=== PATIENT | female | born 1990 | race Two or more races ===

== ENCOUNTER 2025-04-26 15:40 | Emergency (ER) | payer BC ==
[~2025-04-26] VITALS: Ht 175.3 cm; Wt 82.6 kg
[2025-04-26] MEDS ORDERED: diphenhydrAMINE 50 MG/1 ML VIAL ONE (16:07)
[2025-04-26] MEDS ORDERED: METOCLOPRAMIDE HCL 10 MG/2 ML VIAL ONE (16:07)
[2025-04-26] MEDS ORDERED: FAMOTIDINE. 20 MG/2 ML VIAL IV ONE (16:08)
[2025-04-26] MEDS: IV NORMAL SALINE 1000 ML BAG IV ONE (16:20)
[2025-04-26] MEDS: FAMOTIDINE. 20 MG/2 ML VIAL IV ONE (16:20)
[2025-04-26] MEDS: METOCLOPRAMIDE HCL 10 MG/2 ML VIAL IV ONE (16:20)
[2025-04-26] MEDS: diphenhydrAMINE 50 MG/1 ML VIAL IV ONE (16:20)
[2025-04-26 16:25] LABS: PLATELET COUNT (AUTO) 350 K/uL (179-408); RED BLOOD CELL COUNT(AUTO) 4.42 MIL/uL (3.63-4.92); RED CELL DISTRIBUTION WIDTH 13.5 % (12.3-17.7); WHITE BLOOD COUNT (AUTO) 14.2 K/uL (3.8-11.8)
[2025-04-26 16:30] LABS: CREATININE 0.7 mg/dL (0.6-1.3); SODIUM SERUM 143 mmol/L (136-145); UREA NITROGEN, BLOOD 15 mg/dL (7-18)
[2025-04-26 16:37] LABS: ASPARTATE AMINOTRANSFERASE 66 U/L (15-37); TOTAL PROTEIN, SERUM 7.7 g/dL (6.4-8.2)
[2025-04-26 16:42] LABS: PREGNANCY TEST SERUM QUAN < 1 miul/L (0-6)
[2025-04-26 17:26] LABS: *BILIRUBIN,URIN NEGATIVE (NEGATIVE); *BLOOD, URINE NEGATIVE (NEGATIVE); *CLARITY,URINE CLEAR (CLEAR); *COLOR,URINE YELLOW (YELLOW); *KETONES,URINE 3+ (NEGATIVE); *PROTEIN,URINE NEGATIVE (NEGATIVE); *UROBILINOGEN,URINE 0.2 E.U./dl (NORMAL); LEUKOCYTE ESTERASE ,URINE NEGATIVE (NEGATIVE); NITRITE, URINE NEGATIVE (NEGATIVE); UGLUCOSE NEGATIVE (NEGATIVE)
[2025-04-26] MEDS ORDERED: MORPHINE SULFATE 4 MG/1 ML DISP.SYRIN ONE (17:29)
[2025-04-26] MEDS ORDERED: LORAZEPAM 2 MG/1 ML VIAL ONE (17:30)
[2025-04-26] MEDS: LORAZEPAM 2 MG/1 ML VIAL IV ONE (17:35)
[2025-04-26] MEDS: MORPHINE SULFATE 4 MG/1 ML DISP.SYRIN IV ONE (17:36)
[2025-04-26 18:01] LABS: SQUAMOUS EPITHELIAL CELL,UR FEW /HPF (NONE SEEN)
[2025-04-26 18:03] VITALS: BP 151/81
[2025-04-26] MEDS ORDERED: ESCI10TA PO (18:09)
[2025-04-26] MEDS ORDERED: FAMO-132 PO (18:09)
[2025-04-26] MEDS ORDERED: METO-295 PO (18:09)
[2025-04-26 18:52] VITALS: BP 145/80; O2SAT 98
== END 2025-04-26 18:53 | disposition home or self-care (01) ==
LOC: ER 15:40
DX: R11.2 Nausea with vomiting, unspecified (principal); M54.9 Dorsalgia, unspecified; R10.9 Unspecified abdominal pain; R19.7 Diarrhea, unspecified; F12.90 Cannabis use, unspecified, uncomplicated; F41.9 Anxiety disorder, unspecified; G89.29 Other chronic pain; R10.2 Pelvic and perineal pain
CPT/HCPCS: 99284; 96374; 96375; 96361; 80076; 80048; 81001; 83690; 85025; 84702; 36415; J1200; J1308; J2060; J2765; J2270; J7040; A4606; A4663

== ENCOUNTER 2025-05-20 13:02 | Emergency (ER) | payer BC ==
[~2025-05-20] VITALS: Ht 175.3 cm; Wt 77.1 kg
[~2025-05-20 13:02] MED LIST: ESCI10TA PO; FAMO-132 PO; METO-295 PO
[2025-05-20 13:04] VITALS: BP 120/65
[2025-05-20 13:16] LABS: PLATELET COUNT (AUTO) 396 K/uL (179-408); RED BLOOD CELL COUNT(AUTO) 4.40 MIL/uL (3.63-4.92); RED CELL DISTRIBUTION WIDTH 13.1 % (12.3-17.7); WHITE BLOOD COUNT (AUTO) 13.1 K/uL (3.8-11.8)
[2025-05-20] MEDS ORDERED: ONDANSETRON 4 MG/2 ML VIAL ONE (13:21)
[2025-05-20] MEDS: IV NORMAL SALINE 1000 ML BAG IV ONE (13:29)
[2025-05-20] MEDS: ONDANSETRON 4 MG/2 ML VIAL IV ONE (13:29)
[2025-05-20 13:32] LABS: ASPARTATE AMINOTRANSFERASE 11.0 U/L (15-37); CREATININE 0.7 mg/dL (0.6-1.3); SODIUM SERUM 132.0 mmol/L (136-145); TOTAL PROTEIN, SERUM 8.6 g/dL (6.4-8.2); UREA NITROGEN, BLOOD 15.0 mg/dL (7-18)
[2025-05-20 13:48] LABS: *CLARITY,URINE CLEAR (CLEAR); *COLOR,URINE YELLOW (YELLOW); *KETONES,URINE 1+ (NEGATIVE); *UROBILINOGEN,URINE 0.2 E.U./dl (NORMAL); LEUKOCYTE ESTERASE ,URINE NEGATIVE (NEGATIVE); NITRITE, URINE NEGATIVE (NEGATIVE); UGLUCOSE NEGATIVE (NEGATIVE)
[2025-05-20] MEDS ORDERED: MAG HYDROX/AL HYDROX/SIMETH 30 ML LIQUID UDC ONE (13:49)
[2025-05-20] MEDS ORDERED: FAMOTIDINE. 20 MG/2 ML VIAL IV ONE (13:49)
[2025-05-20] MEDS ORDERED: LIDOCAINE VISCUS 2% 15 ML UDC ONE (13:49)
[2025-05-20 13:50] LABS: *BILIRUBIN,URIN 1+ (NEGATIVE); *BLOOD, URINE TRACE (NEGATIVE); *PROTEIN,URINE 3+ (NEGATIVE)
[2025-05-20 13:51] LABS: *URINE HCG, QUAL NEGATIVE (NEGATIVE)
[2025-05-20 14:01] LABS: SQUAMOUS EPITHELIAL CELL,UR FEW /HPF (NONE SEEN)
[2025-05-20] MEDS: MAG HYDROX/AL HYDROX/SIMETH 30 ML LIQUID UDC PO ONE (14:05)
[2025-05-20] MEDS: LIDOCAINE VISCUS 2% 15 ML UDC MM ONE (14:05)
[2025-05-20] MEDS: FAMOTIDINE. 20 MG/2 ML VIAL IV ONE (14:05)
[2025-05-20 15:31] VITALS: BP 120/65; TEMP 98.5; O2SAT 96
== END 2025-05-20 15:32 | disposition home or self-care (01) ==
LOC: ER 13:02
DX: R11.2 Nausea with vomiting, unspecified (principal); R10.13 Epigastric pain; E87.6 Hypokalemia; F12.90 Cannabis use, unspecified, uncomplicated; F41.9 Anxiety disorder, unspecified; Z79.899 Other long term (current) drug therapy; Z87.19 Personal history of other diseases of the digestive system
CPT/HCPCS: 99284; 96374; 96361; 96375; 80076; 80048; 81001; 84703; 83690; 85025; 36415; J1308; J2405; J7040; A4606; A4663

== ENCOUNTER 2025-05-23 17:54 | Emergency (ER) | payer BC ==
[~2025-05-23] VITALS: Ht 175.3 cm; Wt 80.7 kg
[2025-05-23] MEDS ORDERED: KETOROLAC TROMETHAMINE 30 MG INJ ONE (18:44)
[2025-05-23] MEDS ORDERED: ONDANSETRON 4 MG/2 ML VIAL ONE (18:45)
[2025-05-23] MEDS: IV NS 1000 ML 1,000 ML IV ONE (18:52)
[2025-05-23] MEDS: ONDANSETRON 4 MG/2 ML VIAL IV ONE (18:52)
[2025-05-23] MEDS: KETOROLAC TROMETHAMINE 30 MG INJ IVP ONE (18:52)
[2025-05-23 19:04] LABS: PLATELET COUNT (AUTO) 380 K/uL (179-408); RED BLOOD CELL COUNT(AUTO) 4.64 MIL/uL (3.63-4.92); RED CELL DISTRIBUTION WIDTH 13.2 % (12.3-17.7); WHITE BLOOD COUNT (AUTO) 11.8 K/uL (3.8-11.8)
[2025-05-23 19:09] LABS: CREATININE 0.6 mg/dL (0.6-1.3); SODIUM SERUM 137.0 mmol/L (136-145); UREA NITROGEN, BLOOD 14.0 mg/dL (7-18)
[2025-05-23 19:12] VITALS: BP 145/90
[2025-05-23 19:21] LABS: ASPARTATE AMINOTRANSFERASE 27.0 U/L (15-37); TOTAL PROTEIN, SERUM 9.0 g/dL (6.4-8.2)
[2025-05-23 19:23] LABS: ETHANOL < 3 MG/DL (0-10)
[2025-05-23 21:35] LABS: *BILIRUBIN,URIN NEGATIVE (NEGATIVE); *BLOOD, URINE NEGATIVE (NEGATIVE); *CLARITY,URINE SLIGHTLY CLOUDY (CLEAR); *COLOR,URINE YELLOW (YELLOW); *KETONES,URINE 4+ (NEGATIVE); *PROTEIN,URINE 1+ (NEGATIVE); *UROBILINOGEN,URINE 0.2 E.U./dl (NORMAL); LEUKOCYTE ESTERASE ,URINE NEGATIVE (NEGATIVE); NITRITE, URINE NEGATIVE (NEGATIVE); UGLUCOSE NEGATIVE (NEGATIVE)
[2025-05-23 21:40] LABS: *URINE HCG, QUAL NEGATIVE (NEGATIVE)
[2025-05-23 21:49] LABS: SQUAMOUS EPITHELIAL CELL,UR FEW /HPF (NONE SEEN)
[2025-05-23 21:50] LABS: URINE AMORPHOUS PHOSPHATES MODERATE /HPF
[2025-05-23 21:54] LABS: *AMPHETAMINE, URINE NEGATIVE (NEGATIVE); *BARBITURATE, URINE NEGATIVE (NEGATIVE); *BENZODIAZEPINE, URINE NEGATIVE (NEGATIVE); *CANNABINOID, URINE POSITIVE (NEGATIVE); *COCCAINE, URINE NEGATIVE (NEGATIVE); *OPIATE, URINE NEGATIVE (NEGATIVE); *PHENCYCLIDINE SCREEN,URINE NEGATIVE (NEGATIVE); FENTANYL, URINE NEGATIVE (NEGATIVE)
[2025-05-23 22:20] VITALS: BP 141/87; O2SAT 99
== END 2025-05-23 20:49 | disposition left against medical advice (07) ==
LOC: ER 17:57
DX: R10.13 Epigastric pain (principal); R11.2 Nausea with vomiting, unspecified; Z79.899 Other long term (current) drug therapy; Z87.19 Personal history of other diseases of the digestive system
CPT/HCPCS: 80053; 81001; 84703; 83690; 85025; 36415; 99284; 96374; 96375; 80320; 80307; J1885; J2405; J7040; A4606; A4663; G0480

== ENCOUNTER 2025-05-25 21:23 | Emergency (ER) | payer BC ==
[~2025-05-25] VITALS: Ht 175.3 cm; Wt 78.0 kg
[2025-05-25 21:28] VITALS: BP 152/96
[2025-05-25] MEDS ORDERED: LIDOCAINE VISCUS 2% 15 ML UDC ONE (23:13)
[2025-05-25] MEDS ORDERED: MAG HYDROX/AL HYDROX/SIMETH 30 ML LIQUID UDC ONE (23:14)
[2025-05-25] MEDS ORDERED: METOCLOPRAMIDE HCL 10 MG/2 ML VIAL ONE (23:14)
[2025-05-25] MEDS: IV NORMAL SALINE 1000 ML BAG IV ONE (23:24)
[2025-05-25] MEDS: LIDOCAINE VISCUS 2% 15 ML UDC MM ONE (23:24)
[2025-05-25] MEDS: METOCLOPRAMIDE HCL 10 MG/2 ML VIAL IV ONE (23:24)
[2025-05-25] MEDS: MAG HYDROX/AL HYDROX/SIMETH 30 ML LIQUID UDC PO ONE (23:24)
[2025-05-25 23:26] LABS: PLATELET COUNT (AUTO) 386 K/uL (179-408); RED BLOOD CELL COUNT(AUTO) 4.56 MIL/uL (3.63-4.92); RED CELL DISTRIBUTION WIDTH 13.2 % (12.3-17.7); WHITE BLOOD COUNT (AUTO) 11.6 K/uL (3.8-11.8)
[2025-05-25 23:32] LABS: CREATININE 0.6 mg/dL (0.6-1.3); SODIUM SERUM 137 mmol/L (136-145); UREA NITROGEN, BLOOD 14 mg/dL (7-18)
[2025-05-25 23:38] LABS: ASPARTATE AMINOTRANSFERASE 11 U/L (15-37); TOTAL PROTEIN, SERUM 8.6 g/dL (6.4-8.2)
[2025-05-25 23:48] LABS: PREGNANCY TEST SERUM QUAN < 1 miul/L (0-6)
[2025-05-26 01:35] VITALS: BP 142/82; O2SAT 97
== END 2025-05-26 01:39 | disposition home or self-care (01) ==
LOC: ER 21:24
DX: F12.90 Cannabis use, unspecified, uncomplicated (principal); F41.9 Anxiety disorder, unspecified; R11.2 Nausea with vomiting, unspecified; R10.2 Pelvic and perineal pain; Z79.899 Other long term (current) drug therapy
CPT/HCPCS: 99283; 96374; 96361; 80076; 80048; 83690; 85025; 84702; 36415; J2765; J7040 ×2; A4606; A4663